=== PATIENT | male | born 1955 | race African-American/Black ===

== ENCOUNTER 2022-07-26 12:26 | Inpatient (IN) | payer MEDICARE, OTHER ==
[2022-07-26 13:08] LABS: Bacteria/HPF None Seen HPF (None Seen); Bilirubin 1+ (Negative); Blood, Urine Negative (Negative); Clarity Clear (Clear); Glucose, Urine (Dipstick) Normal (Negative); Ketone, Urine Trace mg/dL (Negative); Leukocyte Negative Leu/uL (Negative); Nitrite Negative (Negative); Protein, Urine (Dipstick) 50 mg/dL (Neg-Trace); RBC/HPF 0-3 HPF (0-3); Specific Gravity, Urine 1.039 (1.002-1.036); Squamous Epithelial 0-3 HPF (0-3); Urobilinogen 3 mg/dL (Less than 2); WBC/HPF 0-3 HPF (0-3); pH, Urine 5.5 (5.0-9.0)
[2022-07-26 13:16] LABS: Amphetamine Not Detected (NotDetected); Barbiturates Screen Not Detected (NotDetected); Benzodiazepine Screen Not Detected (NotDetected); Cocaine Metabolite Screen Detected (NotDetected); Methadone Not Detected (NotDetected); Methamphetamine Not Detected (NotDetected); Opiate Screen Not Detected (NotDetected); Oxycodone Screen Not Detected (NotDetected); Phencyclidine (PCP) Not Detected (NotDetected); THC/Cannabinoid Screen Not Detected (NotDetected); Tricyclic Screen Not Detected (NotDetected)
[2022-07-26 13:20] LABS: #Basophils 0.1 thou/uL (0.0-0.2); #Eosinphils 0.1 thou/uL (0.0-0.7); #Lymphocytes 1.6 thou/uL (1.20-3.40); #Monocytes 0.4 thou/uL (0.11-0.59); %Basophils 0.8 % (0.0-1.0); %Eosinophils 1.4 % (0.0-10.0); %Lymphocytes 26.3 % (21.0-51.0); %Monocytes 6.2 % (0.0-10.0); %Neutrophils 65.2 % (42.0-75.0); Mean Corpuscular HGB CONC 31.3 g/dL (32.0-36.0); Mean Corpuscular Hemoglobin 32.1 pg (27.0-31.0); Mean Platelet Volume 9.1 fL (7.4-10.4); Platelet Count 257 thou/uL (130-400); RBC Distribution Width 12.1 % (11.5-14.5); Red Blood Cell (RBC) Count 5.29 mill/uL (4.70-6.10); White Blood Cell (WBC) Count 6.2 thou/uL (4.8-10.8)
[2022-07-26 13:44] LABS: ALT (SGPT) 31 U/L (8-55); AST (SGOT) 25 U/L (5-34); Albumin 4.2 g/dL (3.5-5.0); Alkaline Phosphatase 41 U/L (40-110); Anion Gap 12 mmol/L (10-20); BUN (Urea Nitrogen) 15 mg/dL (8.4-25.7); Bilirubin, Total 1.4 mg/dL (0.2-1.2); Calc. Creatinine Clearance 0 mL/min (70-130); Calcium 9.9 mg/dL (7.8-10.44); Carbon Dioxide 30 mmol/L (22-29); Chloride 115 mmol/L (98-107); Estimated GFR 83; Globulin 3.5 g/dL (2.4-3.5); Glucose 120 mg/dL (70-105); Potassium 3.3 mmol/L (3.5-5.1); Protein, Total 7.7 g/dL (6.0-8.3); Sodium 154 mmol/L (136-145)
[2022-07-26] MEDS ORDERED: Lorazepam 2 MG/ML VIAL IM PRN (17:13)
[2022-07-26] MEDS ORDERED: Ondansetron ODT 4 MG TAB PO PRN (17:13)
[2022-07-26] MEDS ORDERED: Lorazepam 1 MG TAB PO PRN (17:13)
[2022-07-26] MEDS ORDERED: Acetaminophen 650 MG Suppository PR PRN (17:14)
[2022-07-26] MEDS ORDERED: Ondansetron PF 4 MG/2 ML Vial IVP PRN (17:14)
[2022-07-26] MEDS ORDERED: Electrolyte Replacement Protocol 1 EACH FS SCH (17:15)
[2022-07-26] MEDS ORDERED: Lorazepam 2 MG/ML VIAL ONE (17:25)
[2022-07-26 17:42] LABS: #Basophils 0.1 thou/uL (0.0-0.2); #Eosinphils 0.1 thou/uL (0.0-0.7); #Lymphocytes 1.6 thou/uL (1.20-3.40); #Monocytes 0.5 thou/uL (0.11-0.59); %Basophils 0.9 % (0.0-1.0); %Eosinophils 1.4 % (0.0-10.0); %Lymphocytes 22.1 % (21.0-51.0); %Monocytes 6.4 % (0.0-10.0); %Neutrophils 69.2 % (42.0-75.0); Hemoglobin 16.1 g/dL (14.0-18.0); Mean Corpuscular HGB CONC 30.7 g/dL (32.0-36.0); Mean Corpuscular Hemoglobin 31.8 pg (27.0-31.0); Mean Platelet Volume 9.3 fL (7.4-10.4); Platelet Count 239 thou/uL (130-400); RBC Distribution Width 11.9 % (11.5-14.5); Red Blood Cell (RBC) Count 5.08 mill/uL (4.70-6.10); White Blood Cell (WBC) Count 7.2 thou/uL (4.8-10.8)
[2022-07-26] MEDS ORDERED: methylPREDNISolone Sod Succ/PF 125 MG/2 ML VIAL ONE (17:43)
[2022-07-26] MEDS ORDERED: diphenhydrAMINE 50 MG/ML VIAL ONE (17:43)
[2022-07-26 18:05] LABS: ALT (SGPT) 32 U/L (8-55); AST (SGOT) 24 U/L (5-34); Albumin 4.2 g/dL (3.4-4.8); Alkaline Phosphatase 41 U/L (40-110); Anion Gap 14 mmol/L (10-20); BUN (Urea Nitrogen) 13 mg/dL (8.4-25.7); Bilirubin, Direct 0.5 mg/dL (0.1-0.3); Bilirubin, Total 1.5 mg/dL (0.2-1.2); Calc. Creatinine Clearance 0 mL/min (70-130); Calcium 9.2 mg/dL (7.8-10.44); Carbon Dioxide 27 mmol/L (23-31); Chloride 118 mmol/L (98-107); Estimated GFR 95; Globulin 3.3 g/dL (2.4-3.5); Glucose 101 mg/dL (80-115); Phosphorus 3.5 mg/dL (2.3-4.7); Potassium 3.2 mmol/L (3.5-5.1); Protein, Total 7.5 g/dL (5.8-8.1); Sodium 156 mmol/L (136-145)
[2022-07-26] MEDS ORDERED: Folic Acid 1 MG TAB PO SCH (18:15)
[2022-07-26] MEDS ORDERED: Electrolyte Replacement Protocol FS PRN (18:15)
[2022-07-26] MEDS ORDERED: Multivit, Therapeutic 1 TAB PO SCH (18:15)
[2022-07-26] MEDS ORDERED: Magnesium 2 GM/50 ML(in water) 2 GM in Premix Bag 1 BAG IVPB SCH (18:15)
[2022-07-26] MEDS: Lorazepam 1 MG TAB PO SCH ×2 (20:48→23:10)
[2022-07-26] MEDS: 1/2 NS w/KCL 20 mEq 1,000 ML IV SCH (20:54)
[2022-07-26] MEDS: Thiamine HCl 200 MG/2 ML VIAL SLOW IVP SCH (20:57)
[2022-07-26] MEDS: Famotidine/PF 20 mg/2ml Vial SLOW IVP SCH (20:57)
[2022-07-26] MEDS: Potassium Chloride 20 MEQ in Premix Bag 1 BAG IVPB SCH ×2 (21:22→23:09)
[2022-07-26 21:37] VITALS: BMI 20.2
[2022-07-26] MEDS: hydrALAZINE 20 MG/ML VIAL SLOW IVP PRN (21:53)
[2022-07-27] MEDS: 1/2 NS w/KCL 20 mEq 1,000 ML IV SCH ×3 (04:48→17:33)
[2022-07-27] MEDS: Lorazepam 1 MG TAB PO SCH ×2 (05:23→05:27)
[2022-07-27] MEDS: hydrALAZINE 20 MG/ML VIAL SLOW IVP PRN ×2 (05:34→21:47)
[2022-07-27 06:37] LABS: #Lymphocytes 1.3 thou/uL (1.20-3.40); #Monocytes 0.4 thou/uL (0.11-0.59); #Neutrophils 6.2 thou/uL (1.40-6.50); %Basophils 0.4 % (0.0-1.0); %Lymphocytes 16.8 % (21.0-51.0); %Monocytes 4.4 % (0.0-10.0); %Neutrophils 78.4 % (42.0-75.0); Hemoglobin 16.9 g/dL (14.0-18.0); Mean Corpuscular HGB CONC 32.2 g/dL (32.0-36.0); Mean Corpuscular Hemoglobin 32.8 pg (27.0-31.0); Mean Platelet Volume 9.6 fL (7.4-10.4); Platelet Count 236 thou/uL (130-400); RBC Distribution Width 11.9 % (11.5-14.5); Red Blood Cell (RBC) Count 5.17 mill/uL (4.70-6.10)
[2022-07-27 06:53] LABS: Phosphorus 3.4 mg/dL (2.3-4.7)
[2022-07-27 06:54] LABS: Anion Gap 13 mmol/L (10-20); BUN (Urea Nitrogen) 10 mg/dL (8.4-25.7); Calc. Creatinine Clearance 70 mL/min (70-130); Calcium 9.1 mg/dL (7.8-10.44); Carbon Dioxide 26 mmol/L (23-31); Chloride 116 mmol/L (98-107); Estimated GFR 95; Glucose 110 mg/dL (80-115); Magnesium 2.4 mg/dL (1.6-2.6); Sodium 151 mmol/L (136-145)
[2022-07-27] MEDS: Folic Acid 1 MG TAB PO SCH (09:08)
[2022-07-27] MEDS: Famotidine/PF 20 mg/2ml Vial SLOW IVP SCH (09:08)
[2022-07-27] MEDS: Multivit, Therapeutic 1 TAB PO SCH (09:08)
[2022-07-27 11:40] LABS: Syphilis Antibody Nonreactive (Nonreactive); Syphilis Antibody Index 0.09 S/CO (<1.00 Non-Reactive)
[2022-07-27 16:16] LABS: Hemoglobin A1c 4.5 % (4.0-6.0)
[2022-07-27 16:56] LABS: Cardiac Risk 2.5 (Less than 4.5)
[2022-07-27] MEDS ORDERED: Lorazepam 1 MG TAB PO PRN (17:13)
[2022-07-27] MEDS: Thiamine HCl 200 MG/2 ML VIAL SLOW IVP SCH (17:50)
[2022-07-27] MEDS ORDERED: Multivitamins, Adult 10 ML in D5 1/2 NS w/20 mEq KCL 1,000 ML IV SCH (18:30)
[2022-07-27] MEDS: Famotidine 20 MG TAB PO SCH (20:48)
[2022-07-27] MEDS: Aspirin 300 MG Suppository PR SCH (20:48)
[2022-07-27] MEDS: pyridOXINE 50 MG (B6) TAB PO SCH (20:48)
[2022-07-27] MEDS: Cyanocobalamin (Vitamin B-12) 1,000 MCG TAB PO SCH (20:48)
[2022-07-27] MEDS: Heparin 5,000 UNITS/ML VIAL SC SCH (21:47)
[2022-07-28 04:52] LABS: #Basophils 0.1 thou/uL (0.0-0.2); #Eosinphils 0.1 thou/uL (0.0-0.7); #Lymphocytes 2.5 thou/uL (1.20-3.40); #Monocytes 0.5 thou/uL (0.11-0.59); #Neutrophils 3.8 thou/uL (1.40-6.50); %Eosinophils 1.7 % (0.0-10.0); %Lymphocytes 35.6 % (21.0-51.0); %Monocytes 6.6 % (0.0-10.0); %Neutrophils 55.2 % (42.0-75.0); Hemoglobin 15.5 g/dL (14.0-18.0); Mean Corpuscular HGB CONC 31.9 g/dL (32.0-36.0); Mean Corpuscular Hemoglobin 32.2 pg (27.0-31.0); Mean Platelet Volume 9.3 fL (7.4-10.4); Platelet Count 213 thou/uL (130-400); RBC Distribution Width 11.9 % (11.5-14.5); Red Blood Cell (RBC) Count 4.81 mill/uL (4.70-6.10); White Blood Cell (WBC) Count 6.9 thou/uL (4.8-10.8)
[2022-07-28] MEDS: 1/2 NS w/KCL 20 mEq 1,000 ML IV SCH ×5 (04:58→23:36)
[2022-07-28 05:12] LABS: Anion Gap 12 mmol/L (10-20); BUN (Urea Nitrogen) 8 mg/dL (8.4-25.7); Calc. Creatinine Clearance 80 mL/min (70-130); Calcium 8.7 mg/dL (7.8-10.44); Carbon Dioxide 23 mmol/L (23-31); Chloride 112 mmol/L (98-107); Estimated GFR 98; Glucose 94 mg/dL (80-115); Potassium 3.7 mmol/L (3.5-5.1); Sodium 143 mmol/L (136-145)
[2022-07-28 05:16] LABS: ALT (SGPT) 23 U/L (8-55); AST (SGOT) 19 U/L (5-34); Albumin 3.6 g/dL (3.4-4.8); Alkaline Phosphatase 36 U/L (40-110); Anion Gap 11 mmol/L (10-20); BUN (Urea Nitrogen) 8 mg/dL (8.4-25.7); Bilirubin, Total 1.4 mg/dL (0.2-1.2); Calc. Creatinine Clearance 76 mL/min (70-130); Carbon Dioxide 26 mmol/L (23-31); Cardiac Risk 2.4 (Less than 4.5); Chloride 112 mmol/L (98-107); Cholesterol 119 mg/dl (< 200 Desired); Estimated GFR 96; Globulin 2.6 g/dL (2.4-3.5); Glucose 94 mg/dL (80-115); HDL Cholesterol 50 mg/dL (>60 Neg Risk); LDL Cholesterol, Calculated 55 mg/dL; Phosphorus 3.2 mg/dL (2.3-4.7); Potassium 3.9 mmol/L (3.5-5.1); Protein, Total 6.2 g/dL (5.8-8.1); Sodium 145 mmol/L (136-145); Triglycerides 72 mg/dL (Less than 150)
[2022-07-28] MEDS: Folic Acid 1 MG TAB PO SCH (10:23)
[2022-07-28] MEDS: Famotidine 20 MG TAB PO SCH ×2 (10:23→23:37)
[2022-07-28] MEDS: Multivit, Therapeutic 1 TAB PO SCH (10:24)
[2022-07-28] MEDS: Heparin 5,000 UNITS/ML VIAL SC SCH ×2 (12:01→23:37)
[2022-07-28] MEDS ORDERED: Lorazepam 1 MG TAB PO PRN (17:13)
[2022-07-28] MEDS ORDERED: Lorazepam 0.5 MG TAB PO SCH (17:15)
[2022-07-28] MEDS: Thiamine HCl 200 MG/2 ML VIAL SLOW IVP SCH ×2 (19:30→19:34)
[2022-07-28] MEDS: pyridOXINE 50 MG (B6) TAB PO SCH (22:16)
[2022-07-28] MEDS: Cyanocobalamin (Vitamin B-12) 1,000 MCG TAB PO SCH (23:34)
[2022-07-28] MEDS: Aspirin 300 MG Suppository PR SCH (23:36)
[2022-07-29 05:23] LABS: Phosphorus 3.8 mg/dL (2.3-4.7)
[2022-07-29 05:47] LABS: Anion Gap 15 mmol/L (10-20); BUN (Urea Nitrogen) 7 mg/dL (8.4-25.7); Calc. Creatinine Clearance 89 mL/min (70-130); Carbon Dioxide 18 mmol/L (23-31); Chloride 106 mmol/L (98-107); Potassium 4.6 mmol/L (3.5-5.1); Sodium 134 mmol/L (136-145)
[2022-07-29 05:48] LABS: Calcium 8.9 mg/dL (7.8-10.44); Estimated GFR 101; Glucose 80 mg/dL (80-115)
[2022-07-29] MEDS: 1/2 NS w/KCL 20 mEq 1,000 ML IV SCH (06:01)
[2022-07-29 06:35] LABS: #Basophils 0.1 thou/uL (0.0-0.2); #Eosinphils 0.3 thou/uL (0.0-0.7); #Monocytes 0.5 thou/uL (0.11-0.59); %Basophils 1.7 % (0.0-1.0); %Eosinophils 5.3 % (0.0-10.0); %Monocytes 9.6 % (0.0-10.0); %Neutrophils 41.5 % (42.0-75.0); Hemoglobin 16.2 g/dL (14.0-18.0); Mean Corpuscular Hemoglobin 32.5 pg (27.0-31.0); Mean Platelet Volume 10.2 fL (7.4-10.4); Platelet Count 153 thou/uL (130-400); Platelet Morphology Comment PLT clumps seen-ADEQ; RBC Distribution Width 11.6 % (11.5-14.5); Red Blood Cell (RBC) Count 4.98 mill/uL (4.70-6.10); White Blood Cell (WBC) Count 4.8 thou/uL (4.8-10.8)
[2022-07-29] MEDS: Heparin 5,000 UNITS/ML VIAL SC SCH ×2 (09:04→20:15)
[2022-07-29] MEDS: Folic Acid 1 MG TAB PO SCH (09:04)
[2022-07-29] MEDS: Famotidine 20 MG TAB PO SCH ×2 (09:04→20:19)
[2022-07-29] MEDS: Multivit, Therapeutic 1 TAB PO SCH (09:04)
[2022-07-29] MEDS: Dextrose 5%-Lactated Ringers 1,000 ML IV SCH ×2 (10:35→20:16)
[2022-07-29] MEDS: NIFEdipine XL 30 MG TAB PO SCH ×2 (10:38→10:45)
[2022-07-29] MEDS ORDERED: Lorazepam 0.5 MG TAB PO PRN (17:13)
[2022-07-29] MEDS: Thiamine 100 MG TAB PO SCH (18:30)
[2022-07-29] MEDS: Aspirin 300 MG Suppository PR SCH (20:15)
[2022-07-29] MEDS: Cyanocobalamin (Vitamin B-12) 1,000 MCG TAB PO SCH (20:19)
[2022-07-29] MEDS: pyridOXINE 50 MG (B6) TAB PO SCH (20:20)
[2022-07-30 05:14] LABS: #Eosinphils 0.2 thou/uL (0.0-0.7); #Lymphocytes 1.9 thou/uL (1.20-3.40); #Monocytes 0.4 thou/uL (0.11-0.59); #Neutrophils 2.5 thou/uL (1.40-6.50); %Basophils 0.8 % (0.0-1.0); %Eosinophils 3.1 % (0.0-10.0); %Lymphocytes 37.1 % (21.0-51.0); %Monocytes 8.2 % (0.0-10.0); %Neutrophils 50.8 % (42.0-75.0); Hemoglobin 15.2 g/dL (14.0-18.0); Mean Corpuscular HGB CONC 32.2 g/dL (32.0-36.0); Mean Corpuscular Hemoglobin 32.3 pg (27.0-31.0); Mean Platelet Volume 10.1 fL (7.4-10.4); Platelet Count 179 thou/uL (130-400); RBC Distribution Width 11.5 % (11.5-14.5); Red Blood Cell (RBC) Count 4.71 mill/uL (4.70-6.10)
[2022-07-30 05:18] LABS: Anion Gap 12 mmol/L (10-20); BUN (Urea Nitrogen) 6 mg/dL (8.4-25.7); Calc. Creatinine Clearance 88 mL/min (70-130); Calcium 8.7 mg/dL (7.8-10.44); Carbon Dioxide 22 mmol/L (23-31); Chloride 105 mmol/L (98-107); Estimated GFR 101; Glucose 113 mg/dL (80-115); Phosphorus 3.6 mg/dL (2.3-4.7); Potassium 3.9 mmol/L (3.5-5.1); Sodium 135 mmol/L (136-145)
[2022-07-30] MEDS: NIFEdipine XL 30 MG TAB PO SCH (10:38)
[2022-07-30] MEDS: Heparin 5,000 UNITS/ML VIAL SC SCH ×2 (10:39→20:11)
[2022-07-30] MEDS: Multivit, Therapeutic 1 TAB PO SCH (10:40)
[2022-07-30] MEDS: Folic Acid 1 MG TAB PO SCH (10:40)
[2022-07-30] MEDS: Famotidine 20 MG TAB PO SCH ×2 (10:40→20:11)
[2022-07-30] MEDS: Dextrose 5%-Lactated Ringers 1,000 ML IV SCH (15:51)
[2022-07-30] MEDS: Thiamine 100 MG TAB PO SCH (17:31)
[2022-07-30] MEDS: Carvedilol 6.25 MG TAB PO SCH (17:31)
[2022-07-30] MEDS: Aspirin 300 MG Suppository PR SCH (20:10)
[2022-07-30] MEDS: pyridOXINE 50 MG (B6) TAB PO SCH (20:10)
[2022-07-30] MEDS: Cyanocobalamin (Vitamin B-12) 1,000 MCG TAB PO SCH (20:11)
[2022-07-31 05:19] LABS: Phosphorus 3.4 mg/dL (2.3-4.7)
[2022-07-31 05:20] LABS: Anion Gap 15 mmol/L (10-20); BUN (Urea Nitrogen) 6 mg/dL (8.4-25.7); Calc. Creatinine Clearance 86 mL/min (70-130); Calcium 8.9 mg/dL (7.8-10.44); Carbon Dioxide 20 mmol/L (23-31); Chloride 105 mmol/L (98-107); Estimated GFR 99; Glucose 96 mg/dL (80-115); Potassium 4.1 mmol/L (3.5-5.1); Sodium 136 mmol/L (136-145)
[2022-07-31 07:21] LABS: #Basophils 0.1 thou/uL (0.0-0.2); #Eosinphils 0.3 thou/uL (0.0-0.7); #Lymphocytes 1.8 thou/uL (1.20-3.40); #Monocytes 0.5 thou/uL (0.11-0.59); #Neutrophils 1.8 thou/uL (1.40-6.50); %Basophils 1.3 % (0.0-1.0); %Lymphocytes 40.3 % (21.0-51.0); %Monocytes 11.4 % (0.0-10.0); %Neutrophils 39.9 % (42.0-75.0); Hemoglobin 14.3 g/dL (14.0-18.0); Mean Corpuscular HGB CONC 31.6 g/dL (32.0-36.0); Mean Corpuscular Hemoglobin 31.9 pg (27.0-31.0); Mean Platelet Volume 10.7 fL (7.4-10.4); Platelet Count 168 thou/uL (130-400); RBC Distribution Width 11.4 % (11.5-14.5); Red Blood Cell (RBC) Count 4.49 mill/uL (4.70-6.10); White Blood Cell (WBC) Count 4.4 thou/uL (4.8-10.8)
[2022-07-31] MEDS ORDERED: Amlodipine 10 MG TAB PO SCH (09:00)
[2022-07-31] MEDS: Carvedilol 6.25 MG TAB PO SCH ×2 (09:23→16:23)
[2022-07-31] MEDS: Aspirin 325 mg Enteric Coated Tablet PO SCH ×2 (09:23→09:39)
[2022-07-31] MEDS: Heparin 5,000 UNITS/ML VIAL SC SCH ×2 (09:25→22:02)
[2022-07-31] MEDS: Famotidine 20 MG TAB PO SCH ×2 (09:25→22:02)
[2022-07-31] MEDS: Folic Acid 1 MG TAB PO SCH (09:25)
[2022-07-31] MEDS: Multivit, Therapeutic 1 TAB PO SCH (09:26)
[2022-07-31] MEDS: Thiamine 100 MG TAB PO SCH (16:24)
[2022-07-31] MEDS: Atorvastatin Calcium 40 MG TAB PO SCH (22:02)
[2022-07-31] MEDS: pyridOXINE 50 MG (B6) TAB PO SCH (22:02)
[2022-07-31] MEDS: Cyanocobalamin (Vitamin B-12) 1,000 MCG TAB PO SCH (22:02)
[2022-07-31] MEDS: Labetalol HCl 100 MG/20 ML VIAL SLOW IVP PRN (22:42)
[2022-08-01] MEDS: Multivit, Therapeutic 1 TAB PO SCH (09:46)
[2022-08-01] MEDS: Heparin 5,000 UNITS/ML VIAL SC SCH ×2 (09:46→21:13)
[2022-08-01] MEDS: Aspirin 325 mg Enteric Coated Tablet PO SCH (09:46)
[2022-08-01] MEDS: NIFEdipine XL 90 MG TAB PO SCH (09:46)
[2022-08-01] MEDS: Folic Acid 1 MG TAB PO SCH (09:47)
[2022-08-01] MEDS: Famotidine 20 MG TAB PO SCH ×2 (09:47→21:30)
[2022-08-01] MEDS: Carvedilol 6.25 MG TAB PO SCH ×3 (09:47→16:42)
[2022-08-01] MEDS: Thiamine 100 MG TAB PO SCH ×2 (16:33→16:42)
[2022-08-01] MEDS: Cyanocobalamin (Vitamin B-12) 1,000 MCG TAB PO SCH (21:30)
[2022-08-01] MEDS: Atorvastatin Calcium 40 MG TAB PO SCH (21:30)
[2022-08-01] MEDS: pyridOXINE 50 MG (B6) TAB PO SCH (21:30)
[2022-08-02] MEDS: Carvedilol 6.25 MG TAB PO SCH ×2 (10:04→18:51)
[2022-08-02] MEDS: Heparin 5,000 UNITS/ML VIAL SC SCH ×3 (10:04→21:47)
[2022-08-02] MEDS: Folic Acid 1 MG TAB PO SCH (10:04)
[2022-08-02] MEDS: Famotidine 20 MG TAB PO SCH ×2 (10:04→21:51)
[2022-08-02] MEDS: Aspirin 325 mg Enteric Coated Tablet PO SCH (10:04)
[2022-08-02] MEDS: Multivit, Therapeutic 1 TAB PO SCH (10:05)
[2022-08-02] MEDS: NIFEdipine XL 90 MG TAB PO SCH (10:05)
[2022-08-02] MEDS ORDERED: Dextrose 5% in Water 1,000 ML IV SCH (13:45)
[2022-08-02] MEDS: Thiamine 100 MG TAB PO SCH (18:51)
[2022-08-02] MEDS: Atorvastatin Calcium 40 MG TAB PO SCH (21:51)
[2022-08-02] MEDS: pyridOXINE 50 MG (B6) TAB PO SCH (21:51)
[2022-08-02] MEDS: Cyanocobalamin (Vitamin B-12) 1,000 MCG TAB PO SCH (21:51)
[2022-08-03] MEDS: Scopolamine 1.5 mg/72 hour Patch TD SCH (02:45)
[2022-08-03] MEDS: Heparin 5,000 UNITS/ML VIAL SC SCH ×2 (09:35→22:23)
[2022-08-03] MEDS: Aspirin 325 mg Enteric Coated Tablet PO SCH (09:41)
[2022-08-03] MEDS: Folic Acid 1 MG TAB PO SCH (09:41)
[2022-08-03] MEDS: NIFEdipine XL 90 MG TAB PO SCH (09:41)
[2022-08-03] MEDS: Multivit, Therapeutic 1 TAB PO SCH (09:41)
[2022-08-03] MEDS: Famotidine 20 MG TAB PO SCH ×2 (09:41→22:23)
[2022-08-03] MEDS: Carvedilol 6.25 MG TAB PO SCH ×2 (09:42→17:47)
[2022-08-03] MEDS ORDERED: Aspirin 300 MG Suppository PR SCH (10:15)
[2022-08-03] MEDS: Labetalol HCl 100 MG/20 ML VIAL SLOW IVP PRN (12:25)
[2022-08-03] MEDS: Thiamine 100 MG TAB PO SCH (17:47)
[2022-08-03] MEDS: Atorvastatin Calcium 40 MG TAB PO SCH (22:22)
[2022-08-03] MEDS: pyridOXINE 50 MG (B6) TAB PO SCH (22:23)
[2022-08-03] MEDS: Cyanocobalamin (Vitamin B-12) 1,000 MCG TAB PO SCH (22:23)
[2022-08-04] MEDS: Dextrose 5 %-0.45 % NaCl 1,000 ML IV SCH ×3 (04:02→17:46)
[2022-08-04 05:45] LABS: #Basophils 0.1 thou/uL (0.0-0.2); #Eosinphils 0.2 thou/uL (0.0-0.7); #Lymphocytes 1.8 thou/uL (1.20-3.40); #Monocytes 0.5 thou/uL (0.11-0.59); #Neutrophils 1.6 thou/uL (1.40-6.50); %Basophils 1.8 % (0.0-1.0); %Eosinophils 3.9 % (0.0-10.0); %Lymphocytes 43.1 % (21.0-51.0); %Monocytes 12.9 % (0.0-10.0); %Neutrophils 38.3 % (42.0-75.0); Hemoglobin 15.1 g/dL (14.0-18.0); Mean Corpuscular HGB CONC 32.5 g/dL (32.0-36.0); Mean Corpuscular Volume 98.4 fL (78.0-98.0); Platelet Count 193 thou/uL (130-400); RBC Distribution Width 11.3 % (11.5-14.5); Red Blood Cell (RBC) Count 4.72 mill/uL (4.70-6.10); White Blood Cell (WBC) Count 4.2 thou/uL (4.8-10.8)
[2022-08-04 06:05] LABS: Anion Gap 13 mmol/L (10-20); BUN (Urea Nitrogen) 5 mg/dL (8.4-25.7); Calc. Creatinine Clearance 105 mL/min (70-130); Calcium 8.8 mg/dL (7.8-10.44); Carbon Dioxide 24 mmol/L (23-31); Chloride 102 mmol/L (98-107); Estimated GFR 105; Glucose 116 mg/dL (80-115); Magnesium 1.7 mg/dL (1.6-2.6); Potassium 3.5 mmol/L (3.5-5.1); Sodium 135 mmol/L (136-145)
[2022-08-04] MEDS ORDERED: Potassium Chloride 20 MEQ TAB PO SCH (08:00)
[2022-08-04] MEDS ORDERED: Magnesium 2 GM/50 ML(in water) 2 GM in Premix Bag 1 BAG IVPB SCH (08:00)
[2022-08-04] MEDS: Potassium Chloride 20 MEQ in Premix Bag 1 BAG IVPB SCH ×2 (09:09→11:26)
[2022-08-04] MEDS: Aspirin 300 MG Suppository PR SCH (09:10)
[2022-08-04] MEDS: Carvedilol 6.25 MG TAB PO SCH ×2 (09:11→17:47)
[2022-08-04] MEDS: Heparin 5,000 UNITS/ML VIAL SC SCH ×2 (09:11→22:43)
[2022-08-04] MEDS: Multivit, Therapeutic 1 TAB PO SCH (09:12)
[2022-08-04] MEDS: Famotidine 20 MG TAB PO SCH ×2 (09:12→22:42)
[2022-08-04] MEDS: Folic Acid 1 MG TAB PO SCH (09:12)
[2022-08-04] MEDS: NIFEdipine XL 90 MG TAB PO SCH (09:12)
[2022-08-04] MEDS: Labetalol HCl 100 MG/20 ML VIAL SLOW IVP PRN (12:05)
[2022-08-04] MEDS: Thiamine 100 MG TAB PO SCH (17:47)
[2022-08-04] MEDS: Atorvastatin Calcium 40 MG TAB PO SCH (22:42)
[2022-08-04] MEDS: pyridOXINE 50 MG (B6) TAB PO SCH (22:42)
[2022-08-04] MEDS: Cyanocobalamin (Vitamin B-12) 1,000 MCG TAB PO SCH (22:42)
[2022-08-05] MEDS: Dextrose 5 %-0.45 % NaCl 1,000 ML IV SCH ×3 (01:59→17:36)
[2022-08-05 05:34] LABS: #Basophils 0.1 thou/uL (0.0-0.2); #Eosinphils 0.2 thou/uL (0.0-0.7); #Lymphocytes 1.8 thou/uL (1.20-3.40); #Monocytes 0.5 thou/uL (0.11-0.59); #Neutrophils 1.8 thou/uL (1.40-6.50); %Basophils 1.5 % (0.0-1.0); %Eosinophils 4.1 % (0.0-10.0); %Lymphocytes 42.5 % (21.0-51.0); %Monocytes 10.3 % (0.0-10.0); %Neutrophils 41.6 % (42.0-75.0); Hemoglobin 15.2 g/dL (14.0-18.0); Mean Corpuscular HGB CONC 32.7 g/dL (32.0-36.0); Mean Corpuscular Hemoglobin 32.1 pg (27.0-31.0); Mean Corpuscular Volume 98.2 fL (78.0-98.0); Mean Platelet Volume 9.2 fL (7.4-10.4); Platelet Count 212 thou/uL (130-400); RBC Distribution Width 11.2 % (11.5-14.5); Red Blood Cell (RBC) Count 4.72 mill/uL (4.70-6.10); White Blood Cell (WBC) Count 4.3 thou/uL (4.8-10.8)
[2022-08-05 05:47] LABS: Anion Gap 11 mmol/L (10-20); BUN (Urea Nitrogen) Less than 4 mg/dL (8.4-25.7); Calc. Creatinine Clearance 93 mL/min (70-130); Calcium 8.8 mg/dL (7.8-10.44); Carbon Dioxide 28 mmol/L (23-31); Chloride 103 mmol/L (98-107); Estimated GFR 101; Glucose 125 mg/dL (80-115); Magnesium 1.9 mg/dL (1.6-2.6); Potassium 3.6 mmol/L (3.5-5.1); Sodium 138 mmol/L (136-145)
[2022-08-05] MEDS ORDERED: Magnesium 2 GM/50 ML(in water) 2 GM in Premix Bag 1 BAG IVPB SCH (08:00)
[2022-08-05] MEDS: Heparin 5,000 UNITS/ML VIAL SC SCH ×2 (08:41→21:04)
[2022-08-05] MEDS: Folic Acid 1 MG TAB PO SCH (08:45)
[2022-08-05] MEDS: Aspirin 300 MG Suppository PR SCH (08:45)
[2022-08-05] MEDS: Multivit, Therapeutic 1 TAB PO SCH (08:45)
[2022-08-05] MEDS: NIFEdipine XL 90 MG TAB PO SCH (08:45)
[2022-08-05] MEDS: Carvedilol 6.25 MG TAB PO SCH ×2 (08:45→16:20)
[2022-08-05] MEDS: Famotidine 20 MG TAB PO SCH ×2 (08:45→21:22)
[2022-08-05] MEDS: Thiamine 100 MG TAB PO SCH (16:20)
[2022-08-05] MEDS: pyridOXINE 50 MG (B6) TAB PO SCH (21:22)
[2022-08-05] MEDS: Atorvastatin Calcium 40 MG TAB PO SCH (21:22)
[2022-08-05] MEDS: Cyanocobalamin (Vitamin B-12) 1,000 MCG TAB PO SCH (21:22)
[2022-08-06] MEDS: Scopolamine 1.5 mg/72 hour Patch TD SCH (02:17)
[2022-08-06] MEDS: Dextrose 5 %-0.45 % NaCl 1,000 ML IV SCH ×3 (02:18→17:23)
[2022-08-06] MEDS ORDERED: Lorazepam 2 MG/ML VIAL SLOW IVP SCH (04:15)
[2022-08-06 06:28] LABS: #Basophils 0.1 thou/uL (0.0-0.2); #Eosinphils 0.2 thou/uL (0.0-0.7); #Lymphocytes 1.5 thou/uL (1.20-3.40); #Monocytes 0.4 thou/uL (0.11-0.59); #Neutrophils 1.2 thou/uL (1.40-6.50); %Basophils 2.5 % (0.0-1.0); %Eosinophils 5.6 % (0.0-10.0); %Monocytes 10.8 % (0.0-10.0); %Neutrophils 35.1 % (42.0-75.0); Hemoglobin 14.5 g/dL (14.0-18.0); Mean Corpuscular Hemoglobin 31.1 pg (27.0-31.0); Mean Platelet Volume 9.7 fL (7.4-10.4); Platelet Count 177 thou/uL (130-400); RBC Distribution Width 11.4 % (11.5-14.5); Red Blood Cell (RBC) Count 4.66 mill/uL (4.70-6.10); White Blood Cell (WBC) Count 3.3 thou/uL (4.8-10.8)
[2022-08-06 06:59] LABS: Anion Gap 11 mmol/L (10-20); BUN (Urea Nitrogen) Less than 4 mg/dL (8.4-25.7); Calc. Creatinine Clearance 102 mL/min (70-130); Calcium 8.2 mg/dL (7.8-10.44); Carbon Dioxide 21 mmol/L (23-31); Chloride 106 mmol/L (98-107); Estimated GFR 104; Glucose 103 mg/dL (80-115); Magnesium 1.8 mg/dL (1.6-2.6); Potassium 3.4 mmol/L (3.5-5.1); Sodium 135 mmol/L (136-145)
[2022-08-06] MEDS ORDERED: Potassium Chloride 20 MEQ TAB PO SCH (08:00)
[2022-08-06] MEDS ORDERED: Magnesium 2 GM/50 ML(in water) 2 GM in Premix Bag 1 BAG IVPB SCH (08:00)
[2022-08-06] MEDS: NIFEdipine XL 90 MG TAB PO SCH (08:05)
[2022-08-06] MEDS: Multivit, Therapeutic 1 TAB PO SCH (08:05)
[2022-08-06] MEDS: Heparin 5,000 UNITS/ML VIAL SC SCH ×2 (08:05→22:15)
[2022-08-06] MEDS: Famotidine 20 MG TAB PO SCH ×2 (08:05→22:01)
[2022-08-06] MEDS: Folic Acid 1 MG TAB PO SCH (08:06)
[2022-08-06] MEDS: Carvedilol 6.25 MG TAB PO SCH ×2 (08:06→17:21)
[2022-08-06] MEDS: Aspirin 300 MG Suppository PR SCH (08:06)
[2022-08-06] MEDS: Labetalol HCl 100 MG/20 ML VIAL SLOW IVP PRN (09:23)
[2022-08-06] MEDS ORDERED: Acetaminophen 650 MG/20.3 ML UDCUP PO PRN (11:10)
[2022-08-06] MEDS ORDERED: Aspirin 325 MG TAB PO SCH (11:30)
[2022-08-06] MEDS ORDERED: Amlodipine 10 MG TAB PO SCH (11:30)
[2022-08-06] MEDS: Thiamine 100 MG TAB PO SCH (17:21)
[2022-08-06] MEDS: Atorvastatin Calcium 40 MG TAB PO SCH (22:01)
[2022-08-06] MEDS: pyridOXINE 50 MG (B6) TAB PO SCH (22:01)
[2022-08-06] MEDS: Cyanocobalamin (Vitamin B-12) 1,000 MCG TAB PO SCH (22:01)
[2022-08-07] MEDS: Dextrose 5 %-0.45 % NaCl 1,000 ML IV SCH ×3 (03:21→20:49)
[2022-08-07] MEDS: Aspirin 325 MG TAB PO SCH (08:11)
[2022-08-07] MEDS: Folic Acid 1 MG TAB PO SCH (08:11)
[2022-08-07] MEDS: Multivit, Therapeutic 1 TAB PO SCH (08:11)
[2022-08-07] MEDS: Famotidine 20 MG TAB PO SCH ×3 (08:11→20:58)
[2022-08-07] MEDS: Heparin 5,000 UNITS/ML VIAL SC SCH ×2 (08:11→20:50)
[2022-08-07] MEDS: Amlodipine 10 MG TAB PO SCH (08:12)
[2022-08-07] MEDS: Carvedilol 6.25 MG TAB PO SCH ×2 (08:12→17:04)
[2022-08-07 09:11] LABS: Anion Gap 12 mmol/L (10-20); BUN (Urea Nitrogen) Less than 4 mg/dL (8.4-25.7); Calc. Creatinine Clearance 100 mL/min (70-130); Calcium 8.8 mg/dL (7.8-10.44); Carbon Dioxide 25 mmol/L (23-31); Chloride 106 mmol/L (98-107); Estimated GFR 103; Glucose 92 mg/dL (80-115); Potassium 3.9 mmol/L (3.5-5.1); Sodium 139 mmol/L (136-145)
[2022-08-07 12:54] LABS: Eosinophils 3 % (0-10); Hemoglobin 15.3 g/dL (14.0-18.0); Lymphocytes 49 % (21-51); MDiff Complete? YES; Macrocytosis SLIGHT = 6-15 cells (100X) (0-5/hpf); Mean Corpuscular Hemoglobin 31.9 pg (27.0-31.0); Mean Corpuscular Volume 99.7 fL (78.0-98.0); Mean Platelet Volume 9.5 fL (7.4-10.4); Monocytes 11 % (0-10); Neutrophil 32 % (42-75); Platelet Count 240 thou/uL (130-400); Platelet Morphology Comment Appears Adequate; Polychromasia SLIGHT = 2-3 cells (100X) (0-2/hpf); RBC Distribution Width 11.3 % (11.5-14.5); Reactive Lymphocytes 4 % (0-10); White Blood Cell (WBC) Count 3.9 thou/uL (4.8-10.8)
[2022-08-07 16:04] LABS: Magnesium 1.7 mg/dL (1.6-2.6)
[2022-08-07] MEDS ORDERED: Magnesium 2 GM/50 ML(in water) 2 GM in Premix Bag 1 BAG IVPB SCH (16:45)
[2022-08-07] MEDS: Thiamine 100 MG TAB PO SCH (17:04)
[2022-08-07] MEDS: Cyanocobalamin (Vitamin B-12) 1,000 MCG TAB PO SCH ×2 (20:49→21:01)
[2022-08-07] MEDS: Atorvastatin Calcium 40 MG TAB PO SCH (20:49)
[2022-08-07] MEDS: pyridOXINE 50 MG (B6) TAB PO SCH (20:49)
[2022-08-08] MEDS: Dextrose 5 %-0.45 % NaCl 1,000 ML IV SCH ×3 (06:09→21:42)
[2022-08-08] MEDS: Famotidine 20 MG TAB PO SCH ×2 (09:23→21:18)
[2022-08-08] MEDS: Amlodipine 10 MG TAB PO SCH (09:23)
[2022-08-08] MEDS: Folic Acid 1 MG TAB PO SCH (09:23)
[2022-08-08] MEDS: Aspirin 325 MG TAB PO SCH (09:23)
[2022-08-08] MEDS: Carvedilol 6.25 MG TAB PO SCH ×2 (09:24→16:10)
[2022-08-08] MEDS: Multivit, Therapeutic 1 TAB PO SCH (09:24)
[2022-08-08] MEDS: Heparin 5,000 UNITS/ML VIAL SC SCH ×2 (09:24→21:19)
[2022-08-08] MEDS: Thiamine 100 MG TAB PO SCH (16:10)
[2022-08-08] MEDS: Cyanocobalamin (Vitamin B-12) 1,000 MCG TAB PO SCH (21:18)
[2022-08-08] MEDS: pyridOXINE 50 MG (B6) TAB PO SCH (21:19)
[2022-08-08] MEDS ORDERED: Sterile Water 10 ML VIAL FS PRN (21:30)
[2022-08-08] MEDS ORDERED: OLANZapine 10 MG VIAL IM SCH (21:30)
[2022-08-09] MEDS: Scopolamine 1.5 mg/72 hour Patch TD SCH (04:28)
[2022-08-09] MEDS: Dextrose 5 %-0.45 % NaCl 1,000 ML IV SCH ×2 (04:30→16:08)
[2022-08-09 05:26] LABS: #Basophils 0.1 thou/uL (0.0-0.2); #Eosinphils 0.2 thou/uL (0.0-0.7); #Lymphocytes 2.1 thou/uL (1.20-3.40); #Monocytes 0.3 thou/uL (0.11-0.59); #Neutrophils 1.7 thou/uL (1.40-6.50); %Basophils 1.5 % (0.0-1.0); %Eosinophils 3.6 % (0.0-10.0); %Lymphocytes 48.6 % (21.0-51.0); %Monocytes 7.7 % (0.0-10.0); %Neutrophils 38.6 % (42.0-75.0); Hemoglobin 14.8 g/dL (14.0-18.0); Mean Corpuscular HGB CONC 32.2 g/dL (32.0-36.0); Mean Corpuscular Hemoglobin 32.1 pg (27.0-31.0); Mean Platelet Volume 8.6 fL (7.4-10.4); Platelet Count 261 thou/uL (130-400); RBC Distribution Width 11.3 % (11.5-14.5); Red Blood Cell (RBC) Count 4.59 mill/uL (4.70-6.10); White Blood Cell (WBC) Count 4.3 thou/uL (4.8-10.8)
[2022-08-09 05:49] LABS: Anion Gap 12 mmol/L (10-20); BUN (Urea Nitrogen) Less than 4 mg/dL (8.4-25.7); Calc. Creatinine Clearance 87 mL/min (70-130); Calcium 9.3 mg/dL (7.8-10.44); Carbon Dioxide 28 mmol/L (23-31); Chloride 108 mmol/L (98-107); Estimated GFR 99; Glucose 108 mg/dL (80-115); Potassium 3.8 mmol/L (3.5-5.1); Sodium 144 mmol/L (136-145)
[2022-08-09] MEDS: Amlodipine 10 MG TAB PO SCH (09:34)
[2022-08-09] MEDS: Carvedilol 6.25 MG TAB PO SCH (09:34)
[2022-08-09] MEDS: Folic Acid 1 MG TAB PO SCH (09:35)
[2022-08-09] MEDS: Multivit, Therapeutic 1 TAB PO SCH (09:35)
[2022-08-09] MEDS: Famotidine 20 MG TAB PO SCH (09:35)
[2022-08-09] MEDS: Heparin 5,000 UNITS/ML VIAL SC SCH (09:35)
[2022-08-09] MEDS: Aspirin 325 MG TAB PO SCH (09:38)
[2022-08-09 12:37] VITALS: BP 163/79; TEMP 98.1
== END 2022-08-09 15:57 | DRG 64 ==
LOC: EDBD 12:26 → ERS 12:26 → T4-A 17:15 → OBSVTOIN 07-27 11:15 → NEURO 07-27 20:19
PROVIDERS: ADMIT Internal Medicine; ATTEND Internal Medicine
PROC: HZ2ZZZZ Detoxification Services for Substance Abuse Treatment (ICD-10-PCS; principal; 2022-07-27)
DX: I63.512 Cerebral infarction due to unspecified occlusion or stenosis of left middle cerebral artery (principal); R29.715 NIHSS score 15; Z20.822 Contact with and (suspected) exposure to COVID-19; G92.8 Other toxic encephalopathy; F10.139 Alcohol abuse with withdrawal, unspecified; E87.1 Hypo-osmolality and hyponatremia; E87.0 Hyperosmolality and hypernatremia; G81.91 Hemiplegia, unspecified affecting right dominant side; R47.01 Aphasia; R29.810 Facial weakness; R13.10 Dysphagia, unspecified; F14.10 Cocaine abuse, uncomplicated; R47.81 Slurred speech; R13.12 Dysphagia, oropharyngeal phase; E87.6 Hypokalemia; R78.4 Finding of other drugs of addictive potential in blood; I11.9 Hypertensive heart disease without heart failure; R47.1 Dysarthria and anarthria; Z28.21 Immunization not carried out because of patient refusal; Z59.00 Homelessness unspecified
CPT/HCPCS: 36415; 36416; 51701; 70450; 71045; 74230; 80048; 80053; 80061; 80306; 80307; 81003; 81015; 82140; 82248; 82550; 83036; 83605; 83735; 84100; 84443; 84484; 85025; 86780; 87040; 87086; 87811; 93005; 93306; 93880; 95712; 95816; 95819; 95957; 96361; 96374; 96375; J0360; J1200; J1644; J2060; J2358; J2405; J2930; J3411; J3475; J3480; J7042; J7070; S0028; U0003; U0005

== ENCOUNTER 2022-12-17 08:47 | Inpatient (IN) | payer MEDICARE, MEDICAID ==
[2022-12-17] MEDS ORDERED: Magnesium 2 GM/50 ML BAG (IN WATER) ONE (08:54)
[2022-12-17] MEDS ORDERED: Rocuronium Bromide 10 MG/ML (10ML VIAL) ONE (08:55)
[2022-12-17] MEDS ORDERED: EPINEPHrine 1 MG/10 ML Abboject SYRINGE ONE (08:55)
[2022-12-17] MEDS ORDERED: NOREPINEPHRINE 8 MG/250 ML-D5W 250 ML ONE (08:58)
[2022-12-17 09:12] LABS: Mean Corpuscular HGB CONC 32.6 g/dL (32.0-36.0); Mean Corpuscular Hemoglobin 31.8 pg (27.0-31.0); Mean Corpuscular Volume 97.4 fl (78.0-98.0); Platelet Count 516 10x3/uL (130-400); RBC Distribution Width 11.8 % (11.5-14.5); White Blood Cell (WBC) Count 17.6 10x3/uL (4.8-10.8)
[2022-12-17] MEDS ORDERED: Cefepime 2 GM VIAL ONE (09:15)
[2022-12-17 09:22] LABS: INR-International Normal Ratio 1.2; PTT 34.7 sec (22.9-36.1); Prothrombin Time 16.2 sec (12.0-14.7)
[2022-12-17 09:26] LABS: Analyzer IN Cardio ER; CO2 Tension 43.8 mmHg (35.0-45.0); Potassium - ABG Lab 3.18 mmol/L (3.70-5.30); pH, Arterial 7.41 (7.35-7.45)
[2022-12-17 09:31] LABS: ALT (SGPT) 10 U/L (8-55); AST (SGOT) 22 U/L (5-34); Albumin 3.5 g/dL (3.4-4.8); Alkaline Phosphatase 51 U/L (40-110); Anion Gap 21 mmol/L (10-20); BUN (Urea Nitrogen) 19 mg/dL (8.4-25.7); Bilirubin, Total 1.4 mg/dL (0.2-1.2); Calc. Creatinine Clearance 0 mL/min (70-130); Calcium 8.8 mg/dL (7.8-10.44); Carbon Dioxide 27 mmol/L (23-31); Chloride 106 mmol/L (98-107); Estimated GFR 74; Globulin 5.3 g/dL (2.4-3.5); Glucose 155 mg/dL (80-115); Magnesium 2.3 mg/dL (1.6-2.6); Potassium 4.4 mmol/L (3.5-5.1); Protein, Total 8.8 g/dL (5.8-8.1); Sodium 150 mmol/L (136-145)
[2022-12-17 09:49] LABS: Lymphocytes 7 % (21-51); MDiff Complete? YES; Monocytes 8 % (0-10); Neutrophil 83 % (42-75); Platelet Morphology Comment Appears Increased; Polychromasia SLIGHT = 2-3 cells (100X) (0-2/hpf); Reactive Lymphocytes 2 % (0-10)
[2022-12-17] MEDS ORDERED: hydrALAZINE 20 MG/ML VIAL ONE ×2 (09:52→09:53)
[2022-12-17 09:54] LABS: CKMB 0.4 ng/mL (0-6.6)
[2022-12-17] MEDS ORDERED: Acetaminophen 650 MG Suppository ONE (10:03)
[2022-12-17] MEDS ORDERED: Acetaminophen 325 MG TAB PO PRN (10:15)
[2022-12-17] MEDS ORDERED: Acetaminophen 650 MG Suppository PR PRN (10:15)
[2022-12-17] MEDS ORDERED: Ondansetron PF 4 MG/2 ML Vial IVP PRN (10:15)
[2022-12-17] MEDS ORDERED: Senokot S 8.6-50 MG TAB PO PRN (10:15)
[2022-12-17] MEDS ORDERED: Ipratropium/Albuterol 3 ML NEB NEB PRN (10:20)
[2022-12-17] MEDS ORDERED: Labetalol HCl 100 MG/20 ML VIAL SLOW IVP PRN (10:21)
[2022-12-17] MEDS ORDERED: Piperacillin/Tazobactam 3.375 GM in Sodium Chloride 0.9% 100 ML IVPB SCH (10:30)
[2022-12-17] MEDS ORDERED: Ventilator Sedation Protocol 1 EACH FS SCH (10:45)
[2022-12-17] MEDS: Ipratropium/Albuterol 3 ML NEB NEB SCH ×4 (10:49→22:22)
[2022-12-17] MEDS ORDERED: Propofol 1,000 MG/100 ML VIAL IV PRN (11:00)
[2022-12-17] MEDS ORDERED: Fentanyl BOLUS 250 ML IVPB PRN (11:00)
[2022-12-17] MEDS ORDERED: Morphine 4 MG/ML VIAL SLOW IVP PRN (11:00)
[2022-12-17] MEDS ORDERED: Lorazepam 2 MG/ML VIAL SLOW IVP PRN (11:00)
[2022-12-17] MEDS ORDERED: Propofol BOLUS 1,000 MG/100 ML VIAL IV PRN (11:00)
[2022-12-17] MEDS ORDERED: Phenylephrine 10 MG/ML VIAL ONE (11:03)
[2022-12-17] MEDS ORDERED: Phenylephrine 0.25% Nasal Spray 15 ML BOT ONE (11:04)
[2022-12-17] MEDS ORDERED: Lactated Ringer's 500 ML IV SCH (11:15)
[2022-12-17] MEDS ORDERED: NOREPINEPHRINE 8 MG/250 ML-D5W 250 ML IVPB SCH (11:15)
[2022-12-17 11:25] LABS: O2 Tension (PaO2), arterial 47.4 mmHg (> 80.0)
[2022-12-17] MEDS: Fentanyl CADD 100 ML IV SCH (11:25)
[2022-12-17 11:26] LABS: Puncture Site LRA
[2022-12-17] MEDS: Dextrose 5 %-0.45 % NaCl 1,000 ML IV SCH ×2 (11:32→18:37)
[2022-12-17 12:26] LABS: Lactic Acid 5.6 mmol/L (0.5-2.2)
[2022-12-17] MEDS ORDERED: Electrolyte Replacement Protocol FS PRN (13:45)
[2022-12-17] MEDS ORDERED: Electrolyte Replacement Protocol 1 EACH FS SCH (13:45)
[2022-12-17 14:12] LABS: Hemoglobin 11.5 g/dL (14.0-18.0); Mean Corpuscular HGB CONC 30.9 g/dL (32.0-36.0); Mean Corpuscular Hemoglobin 30.7 pg (27.0-31.0); Mean Corpuscular Volume 99.4 fl (78.0-98.0); Mean Platelet Volume 9.3 fL (7.4-10.4); Platelet Count 426 10x3/uL (130-400); RBC Distribution Width 11.8 % (11.5-14.5); Red Blood Cell (RBC) Count 3.74 mill/uL (4.70-6.10); White Blood Cell (WBC) Count 18.1 10x3/uL (4.8-10.8)
[2022-12-17] MEDS ORDERED: VANCOMYCIN 1.25 GM/250 ML BAG 1.25 GM in Premix Bag 1 BAG IVPB SCH (14:30)
[2022-12-17 14:57] LABS: Band 13 % (5-11); MDiff Complete? YES; Monocytes 1 % (0-10); Neutrophil 86 % (42-75); Platelet Morphology Comment Appears Increased; Polychromasia SLIGHT = 2-3 cells (100X) (0-2/hpf)
[2022-12-17] MEDS: Famotidine/PF 20 mg/2ml Vial SLOW IVP SCH (20:46)
[2022-12-17] MEDS ORDERED: Dextrose 50% Abboject 50 ML SYRINGE SLOW IVP PRN (21:49)
[2022-12-17] MEDS ORDERED: Dextrose 5% in Water 1,000 ML IV PRN (21:49)
[2022-12-17] MEDS ORDERED: HumaLOG 300 UNITS/3 ML VIAL SC PRN (21:49)
[2022-12-17] MEDS ORDERED: Insulin NPH Human Isophane 100 UNIT/ML (10 ML VIAL) SC SCH (22:00)
[2022-12-17] MEDS: HumaLOG 300 UNITS/3 ML VIAL SC PRN (22:13)
[2022-12-18] MEDS: Dextrose 5 %-0.45 % NaCl 1,000 ML IV SCH (01:57)
[2022-12-18] MEDS: Ipratropium/Albuterol 3 ML NEB NEB SCH ×6 (02:32→23:22)
[2022-12-18] MEDS: HumaLOG 300 UNITS/3 ML VIAL SC PRN (06:21)
[2022-12-18 07:22] LABS: Actual Bicarbonate (HCO3a) 26.3 mEq/L (22-28); Calcium, Ionized (arterial) 1.09 mmol/L (1.12-1.30); Carboxyhemoglobin (COHb) 0.3 gm% (0.0-3.0); Hemoglobin (Hb) 10.9 g/dL (14.0-18.0); O2 Tension (PaO2), arterial 74.9 mmHg (> 80.0); Potassium - ABG Lab 3.22 mmol/L (3.70-5.30); pH, Arterial 7.44 (7.35-7.45)
[2022-12-18 07:24] LABS: Puncture Site RBA
[2022-12-18 08:48] LABS: Mean Corpuscular Hemoglobin 31.3 pg (27.0-31.0); RBC Distribution Width 11.9 % (11.5-14.5); Red Blood Cell (RBC) Count 3.85 mill/uL (4.70-6.10)
[2022-12-18] MEDS ORDERED: NPH, Human Insulin Isophane 300 UNIT/3 ML VIAL SC SCH (09:00)
[2022-12-18 09:05] LABS: Anion Gap 15 mmol/L (10-20); BUN (Urea Nitrogen) 31 mg/dL (8.4-25.7); Calc. Creatinine Clearance 43 mL/min (70-130); Calcium 8.2 mg/dL (7.8-10.44); Carbon Dioxide 22 mmol/L (23-31); Chloride 110 mmol/L (98-107); Estimated GFR 59; Glucose 230 mg/dL (80-115); Potassium 3.9 mmol/L (3.5-5.1); Sodium 143 mmol/L (136-145)
[2022-12-18] MEDS: Dexamethasone 4 mg/ml Vial SLOW IVP SCH (09:17)
[2022-12-18] MEDS: Famotidine/PF 20 mg/2ml Vial SLOW IVP SCH ×2 (09:17→20:46)
[2022-12-18] MEDS: Sodium Chloride 0.45% 1,000 ML IV SCH (09:18)
[2022-12-18 09:30] LABS: Band 4 % (5-11); Burr Cells SLIGHT = 2-5 cells (100X) (0-1/hpf); Eosinophils 2 % (0-10); Hypochromia SLIGHT = 6-15 cells (100X) (0-5/hpf); Lymphocytes 5 % (21-51); MDiff Complete? YES; Mean Platelet Volume 9.4 fL (7.4-10.4); Monocytes 9 % (0-10); Neutrophil 80 % (42-75); Platelet Count 341 10x3/uL (130-400); Platelet Morphology Comment Appears Adequate; Polychromasia SLIGHT = 2-3 cells (100X) (0-2/hpf); White Blood Cell (WBC) Count 16.9 10x3/uL (4.8-10.8)
[2022-12-18] MEDS: Fentanyl CADD 100 ML IV SCH (09:45)
[2022-12-18 11:43] VITALS: BMI 18.1
[2022-12-18] MEDS ORDERED: Vancomycin 1 GM in Premix Bag 1 BAG IVPB SCH (15:00)
[2022-12-18] MEDS: Atorvastatin Calcium 40 MG TAB PO SCH (20:46)
[2022-12-18] MEDS: Insulin NPH Human Isophane 100 UNIT/ML (10 ML VIAL) SC SCH (21:17)
[2022-12-19] MEDS: Ipratropium/Albuterol 3 ML NEB NEB SCH ×6 (02:03→22:50)
[2022-12-19] MEDS: Sodium Chloride 0.45% 1,000 ML IV SCH (03:34)
[2022-12-19 04:32] LABS: Anion Gap 15 mmol/L (10-20); BUN (Urea Nitrogen) 33 mg/dL (8.4-25.7); Calc. Creatinine Clearance 39 mL/min (70-130); Carbon Dioxide 23 mmol/L (23-31); Chloride 108 mmol/L (98-107); Estimated GFR 52; Glucose 126 mg/dL (80-115); Potassium 3.6 mmol/L (3.5-5.1); Sodium 142 mmol/L (136-145)
[2022-12-19 04:39] LABS: Band 12 % (5-11); Hemoglobin 10.2 g/dL (14.0-18.0); Hypochromia SLIGHT = 6-15 cells (100X) (0-5/hpf); Lymphocytes 2 % (21-51); MDiff Complete? YES; Mean Corpuscular Hemoglobin 30.4 pg (27.0-31.0); Mean Platelet Volume 9.5 fL (7.4-10.4); Monocytes 3 % (0-10); Neutrophil 83 % (42-75); Platelet Count 333 10x3/uL (130-400); Platelet Morphology Comment Appears Adequate; RBC Distribution Width 11.9 % (11.5-14.5); Red Blood Cell (RBC) Count 3.37 mill/uL (4.70-6.10); White Blood Cell (WBC) Count 26.2 10x3/uL (4.8-10.8)
[2022-12-19] MEDS: Fentanyl CADD 100 ML IV SCH (05:21)
[2022-12-19 07:20] LABS: Actual Bicarbonate (HCO3a) 28.9 mEq/L (22-28); Base Excess (BEa) 4.9 mEq/L (-2.0 to +3.0); Calcium, Ionized (arterial) 1.08 mmol/L (1.12-1.30); Carboxyhemoglobin (COHb) 0.3 gm% (0.0-3.0); Hemoglobin (Hb) 10.6 g/dL (14.0-18.0); Potassium - ABG Lab 3.24 mmol/L (3.70-5.30); pH, Arterial 7.48 (7.35-7.45)
[2022-12-19 07:22] LABS: Puncture Site RRA
[2022-12-19] MEDS: Dexamethasone 4 mg/ml Vial SLOW IVP SCH (08:02)
[2022-12-19] MEDS: Aspirin Chewable 81 MG TAB PER TUBE SCH (08:02)
[2022-12-19] MEDS: Insulin NPH Human Isophane 100 UNIT/ML (10 ML VIAL) SC SCH ×3 (08:03→21:26)
[2022-12-19] MEDS: Famotidine/PF 20 mg/2ml Vial SLOW IVP SCH (08:03)
[2022-12-19] MEDS ORDERED: DC Sedation Protocol FS ONE (09:13)
[2022-12-19] MEDS ORDERED: Potassium Chloride 20 MEQ in Premix Bag 1 BAG IVPB SCH (11:30)
[2022-12-19] MEDS ORDERED: Vancomycin 1 GM in Premix Bag 1 BAG IVPB SCH (15:00)
[2022-12-19] MEDS: D5 1/2 NS w/10 mEq KCl 1,000 ML/1,000 ML BAG IV SCH (19:51)
[2022-12-19] MEDS: Atorvastatin Calcium 40 MG TAB PO SCH (21:25)
[2022-12-20] MEDS: Ipratropium/Albuterol 3 ML NEB NEB SCH ×7 (02:38→23:09)
[2022-12-20 07:59] LABS: Chloride 109 mmol/L (98-107); Potassium 3.7 mmol/L (3.5-5.1); Sodium 143 mmol/L (136-145)
[2022-12-20 08:00] LABS: Calcium 8.4 mg/dL (7.8-10.44); Glucose 70 mg/dL (80-115)
[2022-12-20 08:02] LABS: Carbon Dioxide 24 mmol/L (23-31)
[2022-12-20 08:04] LABS: BUN (Urea Nitrogen) 28 mg/dL (8.4-25.7); Calc. Creatinine Clearance 43 mL/min (70-130); Estimated GFR 58
[2022-12-20 08:05] LABS: Magnesium 2.3 mg/dL (1.6-2.6)
[2022-12-20 08:14] LABS: Anion Gap 14 mmol/L (10-20)
[2022-12-20 08:21] LABS: Band 2 % (5-11); Hemoglobin 12.4 g/dL (14.0-18.0); Lymphocytes 7 % (21-51); MDiff Complete? YES; Mean Corpuscular HGB CONC 32.1 g/dL (32.0-36.0); Mean Corpuscular Hemoglobin 31.4 pg (27.0-31.0); Mean Corpuscular Volume 97.9 fl (78.0-98.0); Mean Platelet Volume 9.2 fL (7.4-10.4); Monocytes 5 % (0-10); Neutrophil 85 % (42-75); Platelet Count 425 10x3/uL (130-400); Platelet Morphology Comment Appears Increased; Polychromasia SLIGHT = 2-3 cells (100X) (0-2/hpf); RBC Distribution Width 11.8 % (11.5-14.5); Reactive Lymphocytes 1 % (0-10); Red Blood Cell (RBC) Count 3.93 mill/uL (4.70-6.10); White Blood Cell (WBC) Count 21.5 10x3/uL (4.8-10.8)
[2022-12-20] MEDS: Aspirin Chewable 81 MG TAB PER TUBE SCH (08:59)
[2022-12-20] MEDS: Famotidine/PF 20 mg/2ml Vial SLOW IVP SCH (09:02)
[2022-12-20] MEDS: Dexamethasone 4 mg/ml Vial SLOW IVP SCH (09:02)
[2022-12-20] MEDS ORDERED: Potassium Chloride 20 MEQ in Premix Bag 1 BAG IVPB SCH (12:15)
[2022-12-20] MEDS: D5 1/2 NS w/10 mEq KCl 1,000 ML/1,000 ML BAG IV SCH ×2 (18:13→18:36)
[2022-12-20] MEDS: Atorvastatin Calcium 40 MG TAB PO SCH (20:48)
[2022-12-21] MEDS: Ipratropium/Albuterol 3 ML NEB NEB SCH (06:23)
[2022-12-21] MEDS ORDERED: Albuterol 200 PUFF (6.7GM INHALER) INH PRN (08:30)
[2022-12-21] MEDS: Aspirin Chewable 81 MG TAB PER TUBE SCH (08:33)
[2022-12-21] MEDS: Famotidine/PF 20 mg/2ml Vial SLOW IVP SCH (08:38)
[2022-12-21] MEDS: Dexamethasone 4 mg/ml Vial SLOW IVP SCH (08:38)
[2022-12-21] MEDS: Albuterol 200 PUFF (6.7GM INHALER) INH SCH ×2 (12:50→14:38)
[2022-12-21] MEDS: D5 1/2 NS w/10 mEq KCl 1,000 ML/1,000 ML BAG IV SCH (14:37)
[2022-12-21 17:50] VITALS: BP 151/92; TEMP 98.2
== END 2022-12-21 18:55 | DRG 871 ==
LOC: ERS 08:47 → CCU 09:51 → T4-B 12-20 17:56
PROVIDERS: ADMIT Student in an Organized Health Care Education/Training Program; ATTEND Internal Medicine
PROC: 0D9670Z Drainage of Stomach with Drainage Device, Via Natural or Artificial Opening (ICD-10-PCS; principal; 2022-12-17)
PROC: 3E033XZ Introduction of Vasopressor into Peripheral Vein, Percutaneous Approach (ICD-10-PCS; 2022-12-17)
PROC: 3E03329 Introduction of Other Anti-infective into Peripheral Vein, Percutaneous Approach (ICD-10-PCS; 2022-12-17)
PROC: 5A1945Z Respiratory Ventilation, 24-96 Consecutive Hours (ICD-10-PCS; 2022-12-17)
PROC: 0BH17EZ Insertion of Endotracheal Airway into Trachea, Via Natural or Artificial Opening (ICD-10-PCS; 2022-12-17)
PROC: 3E0333Z Introduction of Anti-inflammatory into Peripheral Vein, Percutaneous Approach (ICD-10-PCS; 2022-12-18)
DX: A41.9 Sepsis, unspecified organism (principal); J69.0 Pneumonitis due to inhalation of food and vomit; U07.1 COVID-19; J96.01 Acute respiratory failure with hypoxia; R65.21 Severe sepsis with septic shock; I69.351 Hemiplegia and hemiparesis following cerebral infarction affecting right dominant side; E87.0 Hyperosmolality and hypernatremia; N17.9 Acute kidney failure, unspecified; E78.5 Hyperlipidemia, unspecified; Z66 Do not resuscitate; I10 Essential (primary) hypertension; Z79.82 Long term (current) use of aspirin; Z79.899 Other long term (current) drug therapy
CPT/HCPCS: 31500; 36415; 36416; 36600; 51702; 71045; 80048; 80053; 82553; 82805; 83605; 83735; 83880; 84484; 85025; 85610; 85730; 86850; 86900; 86901; 87040; 87070; 87077; 87086; 87205; 93005; 94002; 94003; 94640; 96365; 96367; 96375; J0171; J0360; J0692; J1100; J1650; J1815; J1956; J2060; J2704; J3010; J3370; J3372; J3475; J3480; J7042; J7620; S0028